=== PATIENT | female | born 1940 | race Caucasian/White ===

== ENCOUNTER 2022-08-06 06:56 | Outpatient (CLI) | payer MEDICARE, BC | END 2022-08-06 06:57 | disposition home or self-care (01) | LOC: BICULT 06:56 | PROVIDERS: ATTEND Family Medicine | DX: N39.498 Other specified urinary incontinence (principal); R10.2 Pelvic and perineal pain; N28.89 Other specified disorders of kidney and ureter; N13.30 Unspecified hydronephrosis | CPT/HCPCS: 76770 ==

== ENCOUNTER 2022-08-22 13:25 | Outpatient (CLI) | payer MEDICARE, BC | END 2022-08-22 13:26 | disposition home or self-care (01) | LOC: BICCT 13:25 | PROVIDERS: ATTEND Family Medicine | DX: N28.89 Other specified disorders of kidney and ureter (principal); K57.30 Diverticulosis of large intestine without perforation or abscess without bleeding; R91.8 Other nonspecific abnormal finding of lung field; Z90.710 Acquired absence of both cervix and uterus | CPT/HCPCS: 74178; 82565 ==

== ENCOUNTER 2022-08-29 12:30 | Outpatient (CLI) | payer MEDICARE, BC | END 2022-08-29 12:31 | disposition home or self-care (01) | LOC: PET 12:30 | PROVIDERS: ATTEND Family Medicine | DX: R91.8 Other nonspecific abnormal finding of lung field (principal); N28.89 Other specified disorders of kidney and ureter; R59.0 Localized enlarged lymph nodes | CPT/HCPCS: 78815; A9552 ==

== ENCOUNTER 2022-12-12 09:30 | Outpatient (CLI) | payer MEDICARE, BC | END 2022-12-12 09:31 | disposition home or self-care (01) | LOC: PET 09:30 | PROVIDERS: ATTEND Internal Medicine | DX: C64.2 Malignant neoplasm of left kidney, except renal pelvis (principal) | CPT/HCPCS: 78815; A9552 ==

== ENCOUNTER 2023-03-11 08:00 | Outpatient (CLI) | payer MEDICARE, BC | END 2023-03-11 08:01 | disposition home or self-care (01) | LOC: PET 08:00 | PROVIDERS: ATTEND Internal Medicine | DX: C64.2 Malignant neoplasm of left kidney, except renal pelvis (principal); R59.0 Localized enlarged lymph nodes | CPT/HCPCS: 78815; A9552 ==

== ENCOUNTER 2023-06-03 09:30 | Outpatient (CLI) | payer MEDICARE | END 2023-06-03 09:31 | LOC: PET 09:30 | PROVIDERS: ATTEND Internal Medicine | DX: C64.2 Malignant neoplasm of left kidney, except renal pelvis (principal) | CPT/HCPCS: 78815; A9552 ==

== ENCOUNTER 2024-02-16 09:59 | Outpatient (CLI) | payer MEDICARE ==
[~2024-02-16 09:59] MED LIST: Iopamidol 370 76% 100 ML VIAL ONE
== END 2024-02-16 10:00 | disposition home or self-care (01) ==
LOC: CT 09:59
PROVIDERS: ATTEND Internal Medicine
DX: C64.2 Malignant neoplasm of left kidney, except renal pelvis (principal); R91.1 Solitary pulmonary nodule
CPT/HCPCS: 36415; 71260; 74177; 82565; Q9967

== ENCOUNTER 2024-03-12 10:20 | Outpatient (CLI) | payer MEDICARE ==
[2024-03-12] MEDS ORDERED: Iopamidol 30 ML ONE (10:27)
[2024-03-12] MEDS ORDERED: Sodium Bicarbonate 2.5 MEQ/5 ML SDV ONE (10:28)
[2024-03-12] MEDS ORDERED: Lidocaine 1% PF 5 ML VIAL ONE (10:28)
== END 2024-03-12 10:21 | disposition home or self-care (01) ==
LOC: RAD 10:20
PROVIDERS: ATTEND Internal Medicine
DX: Z45.2 Encounter for adjustment and management of vascular access device (principal); T82.598A Other mechanical complication of other cardiac and vascular devices and implants, initial encounter; T82.848A Pain due to vascular prosthetic devices, implants and grafts, initial encounter
CPT/HCPCS: 36598; J1642; Q9967

== ENCOUNTER 2024-03-26 06:45 | Day surgery (SDC) | payer MEDICARE ==
[2024-03-26 07:05] LABS: #Basophils 0.03 10x3/uL (0.0-0.2); %Basophils 0.5 % (0.0-1.0); %Eosinophils 4.9 % (0.0-10.0); %Monocytes 14.9 % (0.0-10.0); %Neutrophils 55.5 % (42.0-75.0); Hematocrit 41.2 % (36.0-47.0); Hemoglobin 13.5 g/dL (12.0-16.0); Mean Corpuscular HGB CONC 32.8 g/dL (32.0-36.0); Mean Corpuscular Hemoglobin 29.9 pg (27.0-31.0); Mean Corpuscular Volume 91.2 fL (78.0-98.0); Mean Platelet Volume 9.1 fL (7.4-10.4); Platelet Count 222 10x3/uL (130-400); RBC Distribution Width 14.3 % (11.5-14.5); Red Blood Cell (RBC) Count 4.52 mill/uL (4.20-5.40)
[2024-03-26 07:25] LABS: PTT 33.2 sec (22.9-36.1)
[2024-03-26] MEDS ORDERED: Sodium Chloride 0.9% 500 ML ONE (08:59)
[2024-03-26] MEDS ORDERED: FLU (Fluad Triv) TS24-25 (65UP)/MF59C/PF 45 MCG/0.5 ML Syringe IM ONE (09:00)
[2024-03-26] MEDS ORDERED: Midazolam HCl 2 mg/2 ml Vial ONE (09:01)
[2024-03-26] MEDS ORDERED: fentaNYL 50 mcg/mL 1 mL Vial ONE ×2 (09:01→10:27)
[2024-03-26] MEDS ORDERED: CEFAZOLIN 1 GM VIAL ONE (09:01)
[2024-03-26] MEDS ORDERED: Sodium Bicarbonate 2.5 MEQ/5 ML SDV ONE (09:01)
[2024-03-26] MEDS ORDERED: Lidocaine 1% w/Epinephrine 1:100K 20 ML VIAL ONE ×2 (09:02→09:20)
== END 2024-03-26 12:45 | disposition home or self-care (01) ==
LOC: SPEC 06:45
PROVIDERS: ATTEND Internal Medicine
PROC: 0JPT3XZ Removal of Tunneled Vascular Access Device from Trunk Subcutaneous Tissue and Fascia, Percutaneous Approach (ICD-10-PCS; principal; 2024-03-26)
PROC: 0JH63XZ Insertion of Tunneled Vascular Access Device into Chest Subcutaneous Tissue and Fascia, Percutaneous Approach (ICD-10-PCS; 2024-03-26)
DX: C79.00 Secondary malignant neoplasm of unspecified kidney and renal pelvis (principal); I10 Essential (primary) hypertension; K64.8 Other hemorrhoids; K21.9 Gastro-esophageal reflux disease without esophagitis; D64.9 Anemia, unspecified; M19.90 Unspecified osteoarthritis, unspecified site; Z87.59 Personal history of other complications of pregnancy, childbirth and the puerperium; Z90.710 Acquired absence of both cervix and uterus; Z79.899 Other long term (current) drug therapy
CPT/HCPCS: 36561; 36582; 76937 ×2; 77001 ×2; 85025; 85610; 85730; C1769; C1788; J0690; J1642; J2250; J3010; J7030; 99152; 99153

== ENCOUNTER 2025-01-17 09:20 | Outpatient (CLI) | payer MEDICARE ==
[2025-01-17 09:53] LABS: Estimated GFR - POC 37.0
[2025-01-17] MEDS ORDERED: Iopamidol 370 76% 100 ML VIAL ONE (09:53)
== END 2025-01-17 09:21 | disposition home or self-care (01) ==
LOC: CT 09:20
PROVIDERS: ATTEND Internal Medicine
DX: C64.2 Malignant neoplasm of left kidney, except renal pelvis (principal); N28.89 Other specified disorders of kidney and ureter
CPT/HCPCS: 36415; 71260; 74177; 82565; Q9967

== ENCOUNTER 2025-04-11 09:52 | Outpatient (CLI) | payer MEDICARE ==
[2025-04-11 10:26] LABS: Estimated GFR - POC 37.0
[2025-04-11] MEDS ORDERED: Iopamidol 370 76% 100 ML VIAL ONE (12:51)
== END 2025-04-11 09:53 | disposition home or self-care (01) ==
LOC: CT 09:52
PROVIDERS: ATTEND Internal Medicine
DX: C64.2 Malignant neoplasm of left kidney, except renal pelvis (principal)
CPT/HCPCS: 36415; 71260; 74177; 82565; Q9967